=== PATIENT | female | born 1995 | race Caucasian/White ===

== ENCOUNTER → 2019-07-19 10:00 | Outpatient (BNVA) | payer OTHER, SELFPAY | PROVIDERS: Visit Provider Nurse Practitioner Women's Health | DX: Z01.89 Encounter for other specified special examinations (principal) | CPT/HCPCS: 88175 ==

== ENCOUNTER → 2020-05-21 10:50 | Outpatient (BNVA) | payer OTHER, SELFPAY | PROVIDERS: Visit Provider Registered Nurse | DX: R10.9 Unspecified abdominal pain (principal); M62.838 Other muscle spasm; B00.1 Herpesviral vesicular dermatitis; J30.89 Other allergic rhinitis | CPT/HCPCS: 81000 ==

== ENCOUNTER → 2020-06-11 09:35 | Outpatient (BNVA) | payer OTHER, SELFPAY | PROVIDERS: Visit Provider Registered Nurse | DX: Z20.828 Contact with and (suspected) exposure to other viral communicable diseases (principal); A08.4 Viral intestinal infection, unspecified | CPT/HCPCS: 87635 ==

== ENCOUNTER 2020-06-21 23:46 | Emergency (ER) | payer OTHER, SELFPAY ==
[2020-06-21 23:53] VITALS: BP 125/78; PULSE 100; RESP 18; TEMP 36.7; O2SAT 100; BMI 32.1
--- NOTE | 2020-06-22 00:29 | ED_ITS ---
HPI - General Adult General: Chief complaint: General Medical Stated complaint: rash Time Seen by Provider: 06/22/20 00:00 Source: patient Mode of arrival: ambulatory Limitations: no limitations History of Present Illness: HPI narrative: 25-year-old female patient presents to the emergency department with several week history of rash to the torso. She states recent visit to her primary care provider due to symptoms, was told it was a Covid rash, she tested negative for Covid. She went to the emergency department on Wednesday, prescribed prednisone, she reports prednisone did help but is not taking the medication daily. States Benadryl causes too much sedation to take. Has not attempted loratadine or Zyrtec. She reports rash is itchy, denies change of detergents lotions or powders. Onset (ago): week(s) (2-3) Location: chest, back and abdomen Associated symptoms: Reports nausea and rash; Deny chest pain, diaphoresis, dyspnea, headache(s) or palpitations Treatments prior to arrival: other (prednisone and Benadryl/hydroxyzine) Review of Systems General: Reports: 10 or more systems reviewed and unremarkable except in HPI and below Const: Denies: fever(s), chills or diaphoresis Eyes: Denies: blurry vision or eye redness ENMT: Denies: throat pain, dental pain or disequilibrium Card: Denies: chest pain, palpitations or irregular heart rhythm Resp: Denies: dyspnea, productive cough, non-productive cough or wheezing GI: Reports: nausea : Denies: difficulty voiding or dysuria Musc: Denies: back pain Skin/Breast: Reports: rash and erythema Neuro: Denies: headache(s), weakness in extremities or behavioral changes Psych: Denies: anxiety or depression Srini/Lymph: Denies: easy bruising PFSH ED PFSH: Medical History (Updated 06/22/20 @ 00:39 by ANNELIESE Mueller) No pertinent past medical history neg hx:htn,dm,thyroid,dvt/pe Surgical History H/O section 08/27/2010 for breech 09/03/2014 as repeat Family History Father Diabetes Hypertension Stroke Mother Family history of thyroid problem Denies family history of Hyperlipidemia Cancer Social History Smoking and tobacco status: current every day smoker cigarettes Alcohol intake: never Physical Exam Const: COMMON NORMALS: no acute distress, patient oriented x3, healthy appearing and alert GENERAL APPEARANCE: cooperative, comfortable and well hydrated HENMT: COMMON NORMALS: normocephalic, Normal external nose present and moist oral mucous membranes HEAD & SCALP: normocephalic NOSE: Normal external nose present Eye: COMMON NORMALS: Equal, round and reactive pupils present and EOMs intact bilaterally GENERAL EYE: appearance normal, both eyes and all related structures PUPIL: Yes Equal, round and reactive pupils present Neck/C-Spine: COMMON NORMALS: full ROM and no lymphadenopathy GENERAL: Yes normal visual inspection and Yes trachea midline CERVICAL SPINE: Yes cervical ROM normal Lymph: LYMPHATIC: no lymphadenopathy noted Chest: COMMONS NORMALS: normal inspection of the chest Resp: COMMON NORMALS: normal respiratory effort and clear to auscultation bilaterally AUSCULTATION: clear to auscultation bilaterally Cardio: COMMON NORMALS: regular rhythm, S1 normal heart sound present and S2 normal heart sound present RHYTHM: regular rhythm HEART SOUNDS: S1 normal heart sound present and S2 normal heart sound present GI: COMMON NORMALS: Soft to palpation and non-tender INSPECTION: Yes normal to inspection PALPATION: Yes Soft to palpation : COMMON NORMALS: Yes no CVA tenderness BLADDER/KIDNEY EXAM: Yes no CVA tenderness Back/Pelvis: COMMON NORMALS: no CVA tenderness and thoracic and lumbar spine normal to inspection Extremity: COMMON NORMALS: normal to inspection and capillary refill normal Neuro: COMMON NORMALS: patient oriented x3 and no focal motor deficits SENSORIUM/ORIENTATION: Yes alert Psych: COMMON NORMALS: mental status grossly normal, Normal thought process present and cooperative ACTIVITY/MOTOR BEHAVIOR: Yes appropriate eye contact THOUGHT PROCESS: Normal thought process present Skin: COMMON NORMALS: no wounds, turgor normal, no jaundice, no petechiae and no mottling GENERAL SKIN EXAM: turgor normal RASHES: rashes noted (scaling, small lesions, salmon-colored, slightly raised, ) and other (Ana tree pattern to the torso and back only, skin is extremely dry) Course Vital Signs: Vital signs: Vital Signs Temperature 98.1 F 06/21/20 23:53 Pulse Rate 78 06/22/20 01:11 Respiratory Rate 18 06/22/20 01:11 Blood Pressure 115/82 06/22/20 01:11 Pulse Oximetry 98 06/22/20 01:11 Discharge Plan Discharge Patient Disposition: Home Clinical Impression: Pityriasis rosea, Acute urticaria Condition: Stable Prescriptions: New prednisone 20 mg tablet 20 mg PO BID 10 Days Qty: 25 RF: 0 Pepcid 20 mg tablet 20 mg PO BID Qty: 20 RF: 0 loratadine 10 mg tablet 10 mg PO DAILY Qty: 10 RF: 0 No Action hydroxyzine HCl 25 mg tablet 25 mg PO TID PRN (Reason: itching) Qty: 15 RF: 0 Discharge Orders: Discharge ED (Routine); Ordered 06/22/20 Ordered By: Ashlee Adrian Referrals: Lissette Marques FNP [Primary Care Provider] - Discharge Diet: Usual diet Discharge Activity: Resume usual activity Patient Instructions: Urticaria (ED), Pityriasis rosea (ED) Activity Restrictions/Additional Instructions: Use hypoallergenic lotion such as Lubriderm or Aveeno, hydrating lotion to the back and abdomen Drink plenty of fluids to remain hydrated to help with skin hydration Take prednisone with food to avoid stomach upset, take medication as directed until all gone support services tech will be contacting you with an appointment with dermatology Return to the emergency department if you develop worsening symptoms such as difficulty breathing or worsening itching Utilize hypoallergenic, fragrance free detergents, double rinse clothing Coding Level of Care Code ED Supervisor [facility] for [facility] Exam Comprehensive
[2020-06-22] MEDS: famotidine 20 mg Tablet 40 MG PO (01:07)
[2020-06-22] MEDS: predniSONE 20 mg Tablet PO (01:07)
[2020-06-22] MEDS: loratadine 10 mg Tablet PO (01:08)
[2020-06-22 01:11] VITALS: BP 115/82; PULSE 78; RESP 18; O2SAT 98
--- NOTE | 2020-06-25 09:28 | DCPLANNER ---
poultry hatchery manager had message to schedule a follow up appointment for patient with dermatology. poultry hatchery manager called the clinic, spoke with Hinojosa, gave clinic patients information. A follow up appointment was scheduled for Wednesday, October 16, 2020 at 1:[address] Alexander. Clinic will call patient with appointment information.
--- NOTE | 2020-08-06 15:48 | DCPLANNER ---
Patient had a follow up appointment scheduled with dermatology Dr. Alexander - patient did attend appointment.
== END 2020-06-22 01:13 | disposition home or self-care (01) ==
PROVIDERS: Emergency Provider Nurse Practitioner Family; PCP Registered Nurse
DX: L42 Pityriasis rosea (principal); L50.9 Urticaria, unspecified; F17.210 Nicotine dependence, cigarettes, uncomplicated
CPT/HCPCS: 12345; 99281; 99283; J7512

== ENCOUNTER 2020-11-22 08:52 | Emergency (ER) | payer MEDICAID, SELFPAY ==
[2020-11-22 09:39] VITALS: BP 104/64; PULSE 77; RESP 16; TEMP 36.6; O2SAT 100; BMI 37.8
--- NOTE | 2020-11-22 10:17 | XR_ITS ---
WS: [id number] Portable AP upright chest, 11/22/2020 Clinical Data: cp, sob Comparison: None. Findings: No nodules, masses or effusions are seen. The heart is normal. The pulmonary vascularity is not increased. No pneumonia or pneumothorax is seen. XR/XR chest 1V portable [id number] Impression: Negative chest.
--- NOTE | 2020-11-22 10:19 | ECG_ITS ---
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 Measurements Intervals Wheeler Rate: 73 P: 64 OH: 155 QRS: 48 QRSD: 86 T: 37 QT: 366 QTc: 404 Interpretive Statements SINUS RHYTHM No previous ECG available for comparison Electronically Signed On 11-22-2020 14:13:36 CDT by Alem Akins M.D. [id number]
[2020-11-22 10:30] LABS: Basophils % 0.3 %; Eosinophils # 0.1 10^3/uL (0.0-0.8); Eosinophils % 0.8 %; Lymphocytes # 5.3 10^3/uL (0.8-4.8); Mean Corpuscular HGB Conc 31.1 g/dL (30.0-36.0); Mean Corpuscular Hemoglobin 27.8 pg (28.0-34.0); Mean Corpuscular Volume 89.3 fL (81-99); Mean Platelet Volume 11.3 fL (7.4-10.4); Monocytes % 6.5 %; Neutrophils # 8.24 10^3/uL (1.8-7.7); Neutrophils % 55.7 %; Nucleated Red Blood Cells % 0 %; Platelet Count 317 10^3/cmm (130-400); Red Blood Count 5.04 10^6/uL (4.1-5.3); Red Cell Distribution Width 13.5 % (12.1-15.1); White Blood Count 14.8 10^3/uL (4.0-10.0)
[2020-11-22 10:54] LABS: Troponin(5th) Baseline 6 ng/L (0-10)
[2020-11-22 10:59] LABS: Alanine Aminotransferase 22 U/L (0-33); Alkaline Phosphatase 70 IU/L (35-105); Blood Urea Nitrogen 11 mg/dL (6-20); Calcium 8.8 mg/dL (8.5-10.5); Carbon Dioxide 23 mmol/L (22-29); Chloride 104 mmol/L (98-107); Globulin 2.5 g/dL (1.3-4.6); Glomerular Filtration Rate 76.3 mL/min (90-130); Glucose 107 mg/dL (65-115); Lipase 43 U/L (13-60); Osmolality Calculated 288 mOsm/kg (285-295); Sodium 139 mmol/L (136-145); Total Bilirubin 0.2 mg/dL (0.15-1.2); Total Protein 6.5 g/dL (6.6-8.7)
[2020-11-22 11:00] LABS: Anion Gap 15.7 (5-19); Aspartate Amino Transferase 35 U/L (0-32); Potassium 3.7 mmol/L (3.5-5.1)
--- NOTE | 2020-11-22 11:00 | ED_ITS ---
HPI - Chest Pain General: Chief Complaint: Chest Pain Stated Complaint: CHEST PAIN AND BACK PAIN Time Seen by Provider: 11/22/20 10:16 History of Present Illness: HPI narrative: Patient is a 25-year-old female with no prior cardiac history who presents to the emergency department with chest pain that she noticed on waking up this morning around 7 AM. She started coughing last night and noticed chest pain this morning. No fever, she was diaphoretic and nauseous but no other symptoms. No dizziness or lightheadedness. She was brought into the emergency department to be evaluated. She was given ketorolac and ondansetron by the ambulance crew and her pain resolved completely. She is currently chest pain-free MD complaint: chest pain Onset (ago): hour(s) (4) Timing of current episode: constant Prior episodes: No Onset: during rest Pain location: substernal Pain radiation: back Severity: severe Relieving factors: other (ketorolac) Exacerbating factors: nothing Associated symptoms: Reports diaphoresis and nausea; Deny abdominal pain, dyspnea, fever(s), leg edema, palpitations, sense of impen ding doom, syncope or vomiting Treatment prior to arrival: other (ketorolac and zofran) Review of Systems General: Reports: 10 or more systems reviewed and unremarkable except in HPI and below Const: Reports: diaphoresis; Denies: fever(s) Card: Denies: palpitations or syncope Resp: Denies: dyspnea GI: Reports: nausea; Denies: abdominal pain or vomiting PFS ED PFSH: Medical History (Reviewed 11/22/20 @ 11:42 by Esthela Rogers MD, [facility] [place] No pertinent past medical history neg hx:htn,dm,thyroid,dvt/pe Surgical History (Reviewed 11/22/20 @ 11:42 by Esthela Rogers MD, [facility] [place]/O section 08/27/2010 for breech 09/03/2014 as repeat Family History (Reviewed 11/22/20 @ 11:42 by Esthela Rogers MD, [facility] [place] Father Diabetes Hypertension Stroke Mother Family history of thyroid problem Denies family history of Hyperlipidemia Cancer Social History (Reviewed 11/22/20 @ 11:42 by Esthela Rogers MD, [facility] [place] Smoking and tobacco status: current every day smoker cigarettes Alcohol intake: never Female Reproductive History: Date of last menstrual period: 11/02/20 Physical Exam Const: COMMON NORMALS: no acute distress, average body habitus, patient oriented x3, no limitations, healthy appearing, alert and well nourished HENMT: COMMON NORMALS: normocephalic, atraumatic and moist oral mucous membranes HEAD & SCALP: normocephalic and atraumatic Neck/C-Spine: COMMON NORMALS: no meningeal signs and no JVD Chest: COMMONS NORMALS: normal inspection of the chest and normal palpation of entire chest wall Resp: COMMON NORMALS: normal respiratory effort, No retractions, No use of accessory muscles, clear to auscultation bilaterally and percussion normal AUSCULTATION: clear to auscultation bilaterally PERCUSSION: percussion normal Cardio: COMMON NORMALS: no JVD, regular rate, regular rhythm, S1 normal heart sound present, S2 normal heart sound present, No gallops present (Cardio), No clicks present (Cardio), No murmurs present (Cardio), No rub (Cardio) and Peripheral pulses 2+ throughout RATE: regular rate RHYTHM: regular rhythm HEART SOUNDS: S1 normal heart sound present and S2 normal heart sound present PERIPHERAL PULSES: Peripheral pulses 2+ throughout GI: COMMON NORMALS: Normal to inspection, nondistended, normoactive bowel sounds present, Soft to palpation, non-tender, No hepatosplenomegaly present, no masses and no bruits PALPATION: Yes Soft to palpation and Yes No hepatosplenomegaly present Neuro: COMMON NORMALS: patient oriented x3 SENSORIUM/ORIENTATION: Yes alert MENINGEAL SIGNS: Yes no meningeal signs Course Reevaluation(s): Reevaluation #1: Discussed her lab and imaging findings with her. Negative for acute findings. We will discharge her home with no new orders. Chest pain likely secondary to musculoskeletal pain from coughing. She voiced understanding and is in agreement with the plan. She will be discharged home on conservative findings. Time: 11:33 Vital Signs: Vital signs: Vital Signs Temperature 97.9 F 11/22/20 09:39 Pulse Rate 79 11/22/20 11:14 Respiratory Rate 22 H 11/22/20 11:14 Blood Pressure 104/64 11/22/20 09:39 Pulse Oximetry 100 11/22/20 11:15 MDM - Chest Pain MDM Narrative: Medical decision making narrative: 25-year-old female patient with chest pain that is unlikely to be cardiac in nature. Heart score is 0 meaning she has a 1.7% risk of a major adverse cardiac event in the next 6 weeks. Chest pain likely related to musculoskeletal pain from coughing. We will discharge her home with no new orders. Medical Records: Attestation: I reviewed the patient's medical records. Lab Data: Attestation: I reviewed the patient's lab results. Labs: Lab Results 11/22/20 11/22/20 11/22/20 Range/Units 08:08 08:08 08:08 WBC 14.8 H (4.0-10.0) 10^3/ uL RBC 5.04 (4.1-5.3) 10^6/u L Hgb 14.0 (11.5-15.3) g/dL Hct 45.0 (37.0-47.0) % MCV 89.3 (81-99) fL MCH 27.8 L (28.0-34.0) pg MCHC 31.1 (30.0-36.0) g/dL RDW 13.5 (12.1-15.1) % Plt Count 317 (130-400) 10^3/c mm MPV 11.3 H (7.4-10.4) fL Neut % (Auto) 55.7 % Lymph % (Auto) 36.0 % Hamblen % (Auto) 6.5 % Eos % (Auto) 0.8 % Baso % (Auto) 0.3 % Neut # (Auto) 8.24 H (1.8-7.7) 10^3/u L Lymph # (Auto) 5.3 H (0.8-4.8) 10^3/u L Hamblen # (Auto) 1.0 H (0.2-0.9) 10^3/u L Eos # (Auto) 0.1 (0.0-0.8) 10^3/u L Baso # (Auto) 0.0 (0.0-0.1) 10^3/u L Nucleated RBC % (a uto) 0 % Nucleated RBCs # 0.0 /100WBC D-Dimer 0.38 (0-0.59) ug/mIFE U Sodium 139 (136-145) mmol/L Potassium 3.7 (3.5-5.1) mmol/L Chloride 104 (98-107) mmol/L Carbon Dioxide 23 (22-29) mmol/L Anion Gap 15.7 (5-19) BUN 11 (6-20) mg/dL Creatinine 0.9 (0.5-0.9) mg/dL GFR Calculation 76.3 L (90-130) mL/min Glucose 107 (65-115) mg/dL Calculated Osmolal ity 288 (285-295) mOsm/k g Calcium 8.8 (8.5-10.5) mg/dL Total Bilirubin 0.2 (0.15-1.2) mg/dL AST 35 H (0-32) U/L ALT 22 (0-33) U/L Alkaline Phosphata se 70 (35-105) IU/L Troponin T Baselin e (0-10) ng/L Total Protein 6.5 L (6.6-8.7) g/dL Albumin 4.0 (3.5-5.2) g/dL Globulin 2.5 (1.3-4.6) g/dL Lipase 43 (13-60) U/L 11/22/ Range/Units 08:08 WBC (4.0-10.0) 10^3/ uL RBC (4.1-5.3) 10^6/u L Hgb (11.5-15.3) g/dL Hct (37.0-47.0) % MCV (81-99) fL MCH (28.0-34.0) pg MCHC (30.0-36.0) g/dL RDW (12.1-15.1) % Plt Count (130-400) 10^3/c mm MPV (7.4-10.4) fL Neut % (Auto) % Lymph % (Auto) % Hamblen % (Auto) % Eos % (Auto) % Baso % (Auto) % Neut # (Auto) (1.8-7.7) 10^3/u L Lymph # (Auto) (0.8-4.8) 10^3/u L Hamblen # (Auto) (0.2-0.9) 10^3/u L Eos # (Auto) (0.0-0.8) 10^3/u L Baso # (Auto) (0.0-0.1) 10^3/u L Nucleated RBC % (a uto) % Nucleated RBCs # /100WBC D-Dimer (0-0.59) ug/mIFE U Sodium (136-145) mmol/L Potassium (3.5-5.1) mmol/L Chloride (98-107) mmol/L Carbon Dioxide (22-29) mmol/L Anion Gap (5-19) BUN (6-20) mg/dL Creatinine (0.5-0.9) mg/dL GFR Calculation (90-130) mL/min Glucose (65-115) mg/dL Calculated Osmolal ity (285-295) mOsm/k g Calcium (8.5-10.5) mg/dL Total Bilirubin (0.15-1.2) mg/dL AST (0-32) U/L ALT (0-33) U/L Alkaline Phosphata se (35-105) IU/L Troponin T Baselin e 6 (0-10) ng/L Total Protein (6.6-8.7) g/dL Albumin (3.5-5.2) g/dL Globulin (1.3-4.6) g/dL Lipase (13-60) U/L Imaging Data^: CXR: Attestation: I personally reviewed and interpreted this imaging study as follows: Radiologist's impression: [address] [id number] ReportSigned Patient: Quang Lamar LUnit #: [id number]: 1995Acct#:[id number]/Sex: / FADM Date: 11/22/20Loc: ERRoom/Bed:Attending Dr: Ordering Provider/Ordering MD: Esthela Rogers MD, [facility] [place] of Service: 11/22/20 Procedure(s): XR chest 1V portable [id number] Accession Number(s): [id number] Report Number: [id number] WS: [id number] Portable AP upright chest, 11/22/2020 Clinical Data: cp, sob Comparison: None. Findings: No nodules, masses or effusions are seen. The heart is normal. The pulmonary vascularity is not increased. No pneumonia or pneumothorax is seen. XR/XR chest 1V portable [id number] Impression: Negative chest. Dictated By:Pao Wilburn MDSigned By:Pao Wilburn MDSigned Date/Time:11/22/20 1037DD/ 1037 EKG Data^: EKG 1: Attestation: I personally reviewed and interpreted this EKG as follows: EKG interpretation date: 11/22/20 EKG interpretation time: 11:09 Prior EKG tracings: not available for review Interpretation: Sinus rhythm. Heart rate 73 bpm. Normal axis. No ST changes. Normal EKG. Discharge Plan Discharge Patient Disposition: Home Clinical Impression: Non-cardiac chest pain Condition: Stable Prescriptions: Continued hydroxyzine HCl 25 mg tablet 25 mg PO TID PRN (Reason: itching) Qty: 15 RF: 0 Pepcid 20 mg tablet 20 mg PO BID Qty: 20 RF: 0 loratadine 10 mg tablet 10 mg PO DAILY Qty: 10 RF: 0 Discharge Orders: Discharge ED (Routine); Ordered 11/22/20 Ordered By: sEthela Rogers Referrals: Pili Marques [Primary Care Provider] - 1-3 days Discharge Diet: Usual diet Discharge Activity: Increase activity as tolerated Patient Instructions: Noncardiac Chest Pain (ED) Activity Restrictions/Additional Instructions: Return for any new or worsening symptoms. Follow-up with your primary care provider within 3 days. Continue home medications. Chest pain most likely caused by the coughing leading to muscle or rib pain. Take Tylenol or ibuprofen as needed for pain. Coding Level of Care Code ED Director Of Retail Marketing for [facility] Alvarado
[2020-11-22 11:14] VITALS: PULSE 79; RESP 22; O2SAT 100
[2020-11-22 11:15] VITALS: O2SAT 100
[2020-11-22 11:25] LABS: D Dimer 0.38 ug/mIFEU (0-0.59)
[2020-11-22 11:51] VITALS: BP 103/56; PULSE 71; RESP 19; O2SAT 71
[2020-11-22 12:15] LABS: Troponin 5 2HR Delta 0 ABS# (0-10)
== END 2020-11-22 11:53 | disposition home or self-care (01) ==
PROVIDERS: Emergency Provider Family Medicine; PCP Registered Nurse
DX: R07.89 Other chest pain (principal); F17.210 Nicotine dependence, cigarettes, uncomplicated
CPT/HCPCS: 71045; 80053; 83690; 84484; 85025; 85378; 93005; 99283

== ENCOUNTER → 2020-12-10 14:55 | Outpatient (BNVA) | payer MEDICAID, SELFPAY | PROVIDERS: PCP Registered Nurse; Visit Provider Nurse Practitioner Women's Health | DX: N92.6 Irregular menstruation, unspecified (principal); L29.9 Pruritus, unspecified; M32.9 Systemic lupus erythematosus, unspecified | CPT/HCPCS: 81025 ==

== ENCOUNTER → 2020-12-13 10:55 | Outpatient (BNVA) | payer MEDICAID, SELFPAY | PROVIDERS: PCP Registered Nurse; Visit Provider Obstetrics & Gynecology | DX: O26.859 Spotting complicating pregnancy, unspecified trimester (principal); Z3A.00 Weeks of gestation of pregnancy not specified | CPT/HCPCS: 86850; 86900 ==

== ENCOUNTER → 2020-12-19 14:51 | Outpatient (BNVA) | payer MEDICAID, SELFPAY | PROVIDERS: PCP Registered Nurse; Visit Provider Obstetrics & Gynecology | DX: O02.1 Missed abortion (principal); O03.9 Complete or unspecified spontaneous abortion without complication; N91.2 Amenorrhea, unspecified | CPT/HCPCS: 84702 ==

== ENCOUNTER 2022-01-05 09:10 | Emergency (ER) | payer MEDICAID, SELFPAY ==
[2022-01-05 09:25] VITALS: BP 107/64; PULSE 83; RESP 14; TEMP 36.5; O2SAT 99; BMI 31.9
--- NOTE | 2022-01-05 10:25 | W.ED.NAVMDI ---
HPI - Nausea/Vomiting/Diarrhea General: Chief complaint: Nausea/Vomiting/Diarrhea Stated complaint: 5 weeks preg pain and spotting Time Seen by Provider: 01/05/22 09:23 Source: patient Mode of arrival: ambulatory History of Present Illness: 26-year-old female presents emergency room she is estimated to be 5 weeks by LMP. She seen Dr. Wilcox recently. For the last 5 days she has had persistent nausea vomiting unable to keep anything down. She has a history of lupus also some chronic back pain she stopped all her medications because of her including prednisone. Her back pain has been worsening her nausea vomiting is been persistent. Over the weekend in the last few days she had some light spotting that has resolved. She did not have any significant pelvic pain. No dysuria urgency or frequency. MD elicited complaint: nausea and vomiting Onset (ago): day(s) (5) Description of vomiting: watery Associated nausea: Yes Associated abdominal pain: No Location of pain: Other (Back exacerbation of her chronic) Pain consistency: constant Severity: moderate Exacerbating factors: none Relieving factors: none Associated symtoms: Reports anorexia and nausea; Denies altered mental status, anxiety, bloating, change in vision, chest pain, cough, diaphoresis, decreased urine output, dizziness, dysuria, epistaxis, fatigue, fecal incontinence, fevers/chills, headache(s), malaise, myalgias, numbness, palpitations, rash, short of breath, syncope, tenesmus, tinnitus or weakness Review of Systems Const: Reports: fever(s); Denies: chills, fatigue, malaise or diaphoresis Eyes: Denies: change in vision ENMT: Denies: tinnitus or epistaxis Card: Denies: chest pain, palpitations or syncope Resp: Denies: dyspnea, productive cough or non-productive cough GI: Reports: nausea and vomiting; Denies: abdominal pain, bloating or fecal incontinence : Denies: dysuria Musc: Reports: back pain Skin/Breast: Denies: rash or pruritus Neuro: Denies: headache(s) or dizziness Psych: Denies: anxiety PFSH ED PFSH: Medical History First trimester Lupus (systemic lupus erythematosus) No pertinent past medical history neg hx:htn,dm,thyroid,dvt/pe 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 Positive ENRIKE (antinuclear antibody) SS-A antibody positive Surgical History H/O section 08/27/2010--breech presentation 09/03/2014-- planned repeat Family History Father Diabetes Hypertension Stroke Mother Family history of thyroid problem Other CAD (coronary artery disease) Cancer Family history of premature coronary artery disease Hyperlipidemia Rheumatoid arthritis Denies family history of Colon cancer Ovarian cancer Lupus Heart disease Hypercholesteremia Chronic kidney disease (CKD) Breast cancer Lung disease Uterine cancer Social History Smoking and tobacco status: former smoker Alcohol intake: never History of recent travel: No Female Reproductive History: Date of last menstrual period: 11/02/20 Physical Exam Const: COMMON NORMALS: no acute distress EXAM LIMITATIONS: no altered mental status GENERAL APPEARANCE: cooperative and comfortable ORIENTATION/CONSCIOUSNESS: Yes awake, Yes oriented to person, Yes oriented to place and Yes oriented to time HENMT: COMMON NORMALS: normocephalic, atraumatic, hearing grossly normal bilaterally, external ears normal, EAC's normal, TM's normal bilaterally, Normal nasal mucous membranes and turbinates present, moist oral mucous membranes and oropharynx normal HEAD & SCALP: normocephalic and atraumatic NOSE: Normal nasal mucous membranes and turbinates present EXTERNAL EAR: Yes external ears normal EXTERNAL AUDITORY CANAL: EAC's normal TYMPANIC MEMBRANE: TM's normal bilaterally Eye: COMMON NORMALS: Equal, round and reactive pupils present, EOMs intact bilaterally, conjunctivae normal and no scleral icterus CONJUNCTIVA: Yes conjunctivae normal PUPIL: Yes Equal, round and reactive pupils present Neck/C-Spine: COMMON NORMALS: full ROM, no lymphadenopathy, supple and no JVD Lymph: LYMPHATIC: no lymphadenopathy noted and no lymphedema noted Resp: COMMON NORMALS: normal respiratory effort, No retractions, No use of accessory muscles and clear to auscultation bilaterally AUSCULTATION: clear to auscultation bilaterally Cardio: COMMON NORMALS: no JVD, regular rate, regular rhythm and No murmurs present (Cardio) RATE: regular rate RHYTHM: regular rhythm GI: COMMON NORMALS: Soft to palpation and No hepatosplenomegaly present AUSCULTATION: Yes normoactive bowel sounds PALPATION: Yes Soft to palpation, No Tenderness to palpation present (GI), No Guarding due to palpation present (GI) and Yes No hepatosplenomegaly present Extremity: COMMON NORMALS: normal to inspection, capillary refill normal, no clubbing, cyanosis or edema, no calf tenderness and no pedal edema Neuro: SENSORIUM/ORIENTATION: Yes oriented to person, Yes oriented to place and Yes oriented to time Skin: COMMON NORMALS: no rashes or lesions noted GENERAL SKIN EXAM: no rashes or lesions noted Course Vital Signs: Vital signs: Vital Signs Temperature 97.7 F 01/05/22 09:25 Pulse Rate 81 01/05/22 10:37 Respiratory Rate 14 01/05/22 11:14 Blood Pressure 126/60 01/05/22 10:37 Pulse Oximetry 99 01/05/22 11:14 Oxygen Delivery Me thod 01/05/22 10:37 MDM - Nausea/Vomiting/Diarrhea Medical Decision Making Hyperemesis gravidarum. Clinical diet 24 to 40 hours advance as tolerated use promethazine as needed follow-up with primary caregiver. Medical Records I reviewed the patient's medical records. Lab Data : 01/05/22 10:20 Radiology Impressions Transvaginal US 01/05/22 12:06 IMPRESSION: 1. Single intrauterine gestation of 6 weeks 6 days. 2. Normal cardiac activity. 3. Normal intrauterine gestation. Laboratory Results WBC 9.2 10^3/uL (4.0-10.0) 01/05/22 10:20 RBC 4.50 10^6/uL (4.1-5.3) 01/05/22 10:20 Hgb 13.3 g/dL (11.5-15.3) 01/05/22 10:20 Hct 42.3 % (37.0-47.0) 01/05/22 10:20 MCV 94.0 fl (81-99) 01/05/22 10:20 MCH 29.6 pg (28.0-34.0) 01/05/22 10:20 MCHC 31.4 g/dL (30.0-36.0) 01/05/22 10:20 RDW 13.3 % (12.1-15.1) 01/05/22 10:20 Plt Count 238 10^3/cmm (130-400) 01/05/22 10:20 MPV 11.4 fL (7.4-10.4) H 01/05/22 10:20 Neut % (Auto) 78.1 % 01/05/22 10:20 Lymph % (Auto) 13.1 % 01/05/22 10:20 [place] % (Auto) 6.4 % 01/05/22 10:20 Eos % (Auto) 1.3 % 01/05/22 10:20 Baso % (Auto) 0.7 % 01/05/22 10:20 Neut # (Auto) 7.21 10^3/uL (1.8-7.7) 01/05/22 10:20 Lymph # (Auto) 1.2 10^3/uL (0.8-4.8) 01/05/22 10:20 [place] # (Auto) 0.6 10^3/uL (0.2-0.9) 01/05/22 10:20 Eos # (Auto) 0.1 10^3/uL (0.0-0.8) 01/05/22 10:20 Baso # (Auto) 0.1 10^3/uL (0.0-0.1) 01/05/22 10:20 Nucleated RBC % (auto) 0 % 01/05/22 10:20 Nucleated RBCs # 0.0 /100WBC 01/05/22 10:20 Ser , Semi-Qnt 98251.00 mIU/mL 01/05/22 10:20 Discharge Plan Discharge Patient Disposition: Home Clinical Impression: Hyperemesis gravidarum, Lupus (systemic lupus erythematosus), First trimester Condition: Stable Prescriptions: No Action prenat.vits,suhas,vkr-pvyw-yfplt Tablet 1 tab PO QAM prednisone 10 mg tablet 10 mg PO DAILY PRN (Reason: for flares) Qty: 30 0RF Discharge Orders: Discharge ED (Routine); Ordered 01/05/22 Ordered By: Jose Rand Referrals: Pili Marques [Primary Care Provider] - Discharge Activity: Resume usual activity Patient Instructions: Opioid Safety Activity Restrictions/Additional Instructions: Follow-up with Dr. Wilcox in the next 2 weeks. You can use the promethazine half to a full tablet as needed for nausea vomitings start the Diclegis immediately and take as per prescription regularly. Coding Level of Care Code ED [facility] Director for [place] Fwd Exam Problem Focused
[2022-01-05] MEDS: promethazine 25 mg/mL SDV 1 mL IM (10:33)
[2022-01-05] MEDS: sodium chloride 0.9% 1,000 ML 999 ML IV ×2 (10:34→11:38)
[2022-01-05 10:37] VITALS: BP 126/60; PULSE 81; RESP 18; O2SAT 100
[2022-01-05 10:43] LABS: Basophils # 0.1 10^3/uL (0.0-0.1); Basophils % 0.7 %; Eosinophils # 0.1 10^3/uL (0.0-0.8); Eosinophils % 1.3 %; Hematocrit 42.3 % (37.0-47.0); Hemoglobin 13.3 g/dL (11.5-15.3); Lymphocytes # 1.2 10^3/uL (0.8-4.8); Lymphocytes % 13.1 %; Mean Corpuscular HGB Conc 31.4 g/dL (30.0-36.0); Mean Corpuscular Hemoglobin 29.6 pg (28.0-34.0); Mean Platelet Volume 11.4 fL (7.4-10.4); Monocytes # 0.6 10^3/uL (0.2-0.9); Monocytes % 6.4 %; Neutrophils # 7.21 10^3/uL (1.8-7.7); Neutrophils % 78.1 %; Nucleated Red Blood Cells % 0 %; Platelet Count 238 10^3/cmm (130-400); Red Cell Distribution Width 13.3 % (12.1-15.1); White Blood Count 9.2 10^3/uL (4.0-10.0)
[2022-01-05 11:14] VITALS: RESP 14; O2SAT 99
[2022-01-05] MEDS: morphine 4 mg/mL SDV 1 mL 2 MG IVP (11:14)
--- NOTE | 2022-01-05 12:06 | US_ITS ---
WS: [id number] EARLY OBSTETRICAL ULTRASOUND (<14 WEEKS). HISTORY: Confirm intrauterine gestation. COMPARISON: None available. Single intrauterine gestational sac is identified. Cardiac activity at 136 BPM. [place]-rump length mike sures 0.9 cm which corresponds to a gestation of 6w6d. Normal-appearing yolk sac and amnion demonstra hao. No subchorionic hemorrhage. No free fluid. Normal size ovaries. The RIGHT ovary contains a corpus luteum of measuring 2.1 x 2.0 x 2.3 cm. US/US OB transvaginal [id number] IMPRESSION: 1. Single intrauterine gestation of 6 weeks 6 days. 2. Normal cardiac activity. 3. Normal intrauterine gestation.
== END 2022-01-05 13:05 | disposition home or self-care (01) ==
PROVIDERS: Emergency Provider Family Medicine; PCP Registered Nurse
DX: O21.0 Mild hyperemesis gravidarum (principal); Z3A.01 Less than 8 weeks gestation of pregnancy; O99.111 Other diseases of the blood and blood-forming organs and certain disorders involving the immune mechanism complicating pregnancy, first trimester; M32.9 Systemic lupus erythematosus, unspecified; Z87.891 Personal history of nicotine dependence
CPT/HCPCS: 76817; 84702; 85025; 96361; 96372; 96374; 99285; J2270; J2550; J7030

== ENCOUNTER → 2022-01-13 11:03 | Outpatient (BNVA) | payer MEDICAID, SELFPAY | PROVIDERS: PCP Family Medicine; Visit Provider Internal Medicine Rheumatology | DX: R76.8 Other specified abnormal immunological findings in serum (principal); Z79.899 Other long term (current) drug therapy; Z33.1 Pregnant state, incidental | CPT/HCPCS: 99214 ==

== ENCOUNTER 2022-01-15 14:29 | Emergency (ER) | payer MEDICAID, SELFPAY ==
[2022-01-15 14:52] VITALS: BP 127/77; PULSE 93; RESP 18; TEMP 36.6; O2SAT 98; BMI 32.8
--- NOTE | 2022-01-15 15:24 | W.ED.BACK ---
HPI - Back Pain/Injury General: Chief Complaint: Back Pain/Injury Stated Complaint: SOB Time Seen by Provider: 01/15/22 15:08 History of Present Illness: Patient is a 26-year-old female that is currently 8 weeks and comes to the ED with back pain. Patient has lupus and has been having these flareups of back pain chronically. This back pain flareup started today is like her past back pain flareups due to lupus. She also endorsed having some nausea and vomiting at the time she was having acute pain earlier this morning. Back pain is on right side of mid back region. Denies any injury or trauma to cause acute pain. She just saw her vibration technician a couple days ago and they started her on a course of prednisone but she has not picked up prescription yet. She also has an outpatient ultrasound of her back ordered and is supposed to be getting it done with Guy Lucero within the next week. Doctors told her that her lupus will either flareup and get worse when she gets or will go in remission. Patient feels like her lupus symptoms are flaring up more now that she is . Denies any concerns for . Denies any vaginal bleeding, vaginal discharge, dysuria, hematuria, abdominal pain, diarrhea, fevers. Denies any current nausea or vomiting. Associated symptoms: Reports nausea and vomiting; Deny abdominal pain, chills, dysuria, fatigue, fever(s) or hematuria Review of Systems Const: Denies: fever(s), chills or fatigue Eyes: Denies: change in vision or eye discomfort ENMT: Denies: throat pain, odynophagia, nasal discharge or nasal congestion Card: Denies: chest pain, palpitations, edema, swelling of feet/ankles, dyspnea on exertion or orthopnea Resp: Denies: dyspnea, productive cough or non-productive cough GI: Reports: nausea and vomiting; Denies: abdominal pain, diarrhea, constipation or hematochezia : Denies: flank pain, dysuria, hematuria, vaginal bleeding or vaginal discharge Musc: Reports: back pain; Denies: neck pain or extremity swelling Skin/Breast: Denies: rash or new lesions Neuro: Denies: headache(s), numbness in extremities or weakness in extremities PFS ED PFSH: Medical History First trimester Lupus (systemic lupus erythematosus) No pertinent past medical history neg hx:htn,dm,thyroid,dvt/pe 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 Positive ENRIKE (antinuclear antibody) SS-A antibody positive Surgical History H/O section 08/27/2010--breech presentation 09/03/2014-- planned repeat Family History Father Diabetes Hypertension Stroke Mother Family history of thyroid problem Other CAD (coronary artery disease) Cancer Family history of premature coronary artery disease Hyperlipidemia Rheumatoid arthritis Denies family history of Colon cancer Ovarian cancer Lupus Heart disease Hypercholesteremia Chronic kidney disease (CKD) Breast cancer Lung disease Uterine cancer Social History Smoking and tobacco status: former smoker Alcohol intake: never History of recent travel: No Female Reproductive History: Date of last menstrual period: 11/28/21 Physical Exam Const: COMMON NORMALS: no acute distress, patient oriented x3, healthy appearing and alert GENERAL APPEARANCE: cooperative and comfortable HENMT: COMMON NORMALS: normocephalic HEAD & SCALP: normocephalic MOUTH: Normal oral and palatal mucosa present THROAT: posterior oropharynx normal and uvula midline Neck/C-Spine: COMMON NORMALS: supple GENERAL: Yes normal visual inspection Resp: COMMON NORMALS: normal respiratory effort, No retractions, No use of accessory muscles and clear to auscultation bilaterally AUSCULTATION: clear to auscultation bilaterally Cardio: COMMON NORMALS: regular rate, regular rhythm, S1 normal heart sound present, S2 normal heart sound present, No gallops present (Cardio), No clicks present (Cardio), No murmurs present (Cardio) and Peripheral pulses 2+ throughout RATE: regular rate RHYTHM: regular rhythm HEART SOUNDS: S1 normal heart sound present and S2 normal heart sound present PERIPHERAL PULSES: Peripheral pulses 2+ throughout GI: COMMON NORMALS: Normal to inspection, nondistended, normoactive bowel sounds present, Soft to palpation, non-tender and no masses PALPATION: Yes Soft to palpation : COMMON NORMALS: Yes no CVA tenderness BLADDER/KIDNEY EXAM: Yes no CVA tenderness Back/Pelvis: COMMON NORMALS: no CVA tenderness THORACIC SPINE/UPPER BACK: Yes paraspinal muscle tenderness Thoracic paraspinal muscle tenderness: right Right thoracic paraspinal muscle tenderness: T6, T7 and T8 Extremity: COMMON NORMALS: normal to inspection Neuro: COMMON NORMALS: patient oriented x3 SENSORIUM/ORIENTATION: Yes alert GAIT: Yes Normal gait present Skin: GENERAL SKIN EXAM: dry skin Course Vital Signs: Vital signs: Vital Signs Temperature 97.9 F 01/15/22 14:52 Pulse Rate 67 01/15/22 15:43 Respiratory Rate 18 01/15/22 15:43 Blood Pressure 126/65 01/15/22 15:43 Pulse Oximetry 100 01/15/22 15:43 Oxygen Delivery Me thod 01/15/22 15:43 MDM - Back Pain/Injury Medical Decision Making Patient is a 26-year-old female comes to the ED with back pain. Patient has history of lupus and has back pain flareups like this chronically. She says that this flareup of back pain is like her other flares in the past. She is currently 8 weeks and denies any complaints. Denies any fevers, dysuria, hematuria, vaginal discharge, vaginal bleeding, abdominal pain, current nausea or vomiting. Patient saw a vibration technician several days ago about the back pain and put her on prednisone and scheduled an ultrasound of her back in the next week. Vitals are stable. Patient appears nontoxic and in no acute distress or pain. She has some right paraspinal muscle tenderness of the thoracic spine. Rest of exam is benign. CBC, CMP and UA were all unremarkable and no signs of UTI. hCG 88,493 which is up from 57,730 back on January 05. Patient was stable for discharge home and diagnosed with back pain during and told to follow-up with her OB Dr. Wilcox in the next 24 to 48 hours for further evaluation. Strict return to ED precautions given. Patient understood agree with plan. Labs I reviewed the patient's lab results. : 01/15/22 15:34 01/15/22 15:34 Laboratory Results WBC 10.1 10^3/uL (4.0-10.0) H 01/15/22 15:34 RBC 4.45 10^6/uL (4.1-5.3) 01/15/22 15:34 Hgb 13.0 g/dL (11.5-15.3) 01/15/22 15:34 Hct 39.8 % (37.0-47.0) 01/15/22 15:34 MCV 89.4 fl (81-99) 01/15/22 15:34 MCH 29.2 pg (28.0-34.0) 01/15/22 15:34 MCHC 32.7 g/dL (30.0-36.0) 01/15/22 15:34 RDW 12.7 % (12.1-15.1) 01/15/22 15:34 Plt Count 264 10^3/cmm (130-400) 01/15/22 15:34 MPV 10.9 fL (7.4-10.4) H 01/15/22 15:34 Neut % (Auto) 79.4 % 01/15/22 15:34 Lymph % (Auto) 13.2 % 01/15/22 15:34 [place] % (Auto) 5.9 % 01/15/22 15:34 Eos % (Auto) 0.7 % 01/15/22 15:34 Baso % (Auto) 0.4 % 01/15/22 15:34 Neut # (Auto) 8.01 10^3/uL (1.8-7.7) H 01/15/22 15:34 Lymph # (Auto) 1.3 10^3/uL (0.8-4.8) 01/15/22 15:34 [place] # (Auto) 0.6 10^3/uL (0.2-0.9) 01/15/22 15:34 Eos # (Auto) 0.1 10^3/uL (0.0-0.8) 01/15/22 15:34 Baso # (Auto) 0.0 10^3/uL (0.0-0.1) 01/15/22 15:34 Nucleated RBC % (auto) 0 % 01/15/22 15:34 Nucleated RBCs # 0.0 /100WBC 01/15/22 15:34 Sodium 137 mmol/L (136-145) 01/15/22 15:34 Potassium 3.9 mmol/L (3.5-5.1) 01/15/22 15:34 Chloride 101 mmol/L (98-107) 01/15/22 15:34 Carbon Dioxide 24 mmol/L (22-29) 01/15/22 15:34 Anion Gap 15.9 (5-19) 01/15/22 15:34 BUN 9 mg/dL (6-20) 01/15/22 15:34 Creatinine 0.7 mg/dL (0.5-0.9) 01/15/22 15:34 GFR Calculation 101.1 mL/min (90-130) 01/15/22 15:34 Glucose 93 mg/dL (65-115) 01/15/22 15:34 Calculated Osmolality 282 mOsm/kg (285-295) L 01/15/22 15:34 Calcium 9.3 mg/dL (8.5-10.5) 01/15/22 15:34 Total Bilirubin 0.4 mg/dL (0.15-1.2) 01/15/22 15:34 AST 43 U/L (0-32) H 01/15/22 15:34 ALT 47 U/L (0-33) H 01/15/22 15:34 Alkaline Phosphatase 144 U/L (35-105) H 01/15/22 15:34 Total Protein 6.7 g/dL (6.6-8.7) 01/15/22 15:34 Albumin 3.8 g/dL (3.5-5.2) 01/15/22 15:34 Globulin 2.9 g/dL (1.3-4.6) 01/15/22 15:34 Ser , Semi-Qnt 79955.00 mIU/mL 01/15/22 15:34 Urine Color Yellow (Yellow) 01/15/22 15:19 Urine Appearance Hazy (CLEAR) A 01/15/22 15:19 Urine pH 7 (5-7) 01/15/22 15:19 Ur Specific [place] 1.015 (1.005-1.030) 01/15/22 15:19 Urine Protein Neg (Negative) 01/15/22 15:19 Urine Glucose (UA) Norm (Normal) 01/15/22 15:19 Urine Ketones Negative (Negative) 01/15/22 15:19 Urine Blood Neg (Negative) 01/15/22 15:19 Urine Nitrate Negative (Negative) 01/15/22 15:19 Urine Bilirubin Neg (Negative) 01/15/22 15:19 Urine Urobilinogen 1 mg/dL (Negative) H 01/15/22 15:19 Ur Leukocyte Esterase Negative (Negative) 01/15/22 15:19 Discharge Plan Discharge Patient Disposition: Home Clinical Impression: Back pain during Condition: Stable Prescriptions: No Action prenat.vits,suhas,gxu-ofgo-hmuca Tablet 1 tab PO QAM prednisone 10 mg tablet 10 mg PO DAILY PRN (Reason: for flares) Qty: 30 0RF Discharge Orders: Discharge ED (Routine); Ordered 01/15/22 Ordered By: Colt Levy Referrals: Jeff Wilcox MD [Primary Care Provider] - Discharge Diet: Regular Discharge Activity: Increase activity as tolerated Activity Restrictions/Additional Instructions: Follow-up with Dr. Wilcox within the next 24 to 48 hours for further evaluation of back pain. Take [id number] Tylenol to help with pain. Return to the ER or your medical provider if condition worsens. Please read and understand discharge instructions. Thank you for choosing [facility] for your healthcare needs today. Please realize this is an emergency room and that we are providing you with a medical screening exam and this may not be complete and all inclusive of all the testing and or work up that you may need to determine your ailment or severity of your illness. It is very important that you follow up as instructed or that you return to the Emergency Department should you have concerns or if your condition changes or worsens in any way. Coding Level of Care Code ED Printing Sales Representative for Michael Alvarado Exam Comprehensive
[2022-01-15 15:26] LABS: Add Urine Microscopic? NO; Charge for UA Resulting for Rev
[2022-01-15 15:30] LABS: Bilirubin Urine Neg (Negative); Blood Urine Neg (Negative); Glucose Urine UA Norm (Normal); Ketones Urine Negative (Negative); Leukocyte Esterase Urine Negative (Negative); Nitrate Urine Negative (Negative); Protein Urine Neg (Negative); Specific Gravity, Urine 1.015 (1.005-1.030); Urine Appearance Hazy (CLEAR); Urine Color Yellow (Yellow); Urobilinogen Urine 1 mg/dL (Negative); pH Urine 7 (5-7)
--- NOTE | 2022-01-15 15:31 | PC.PHAR ---
pt states she hasnt taken zofran (filled 01/02/22),zyrtec 10mg qd prn (filled 12/19/21),hydroxyzine pamoate 50mg tid prn (filled 12/19/21),pepcid 20mg qd prn (filled 12/19/21) hydroxycloroquine 200mg bid prn (filled 12/19/21 10d/s) since feb when she found out she was -pt states only taking a vitamin-notes are made in the pharmacy comments
[2022-01-15 15:43] VITALS: BP 126/65; PULSE 67; RESP 18; O2SAT 100
[2022-01-15] MEDS: HYDROcodone-acetaminophen 5-325 mg Tablet 1 TAB PO (15:45)
[2022-01-15 15:49] LABS: Basophils % 0.4 %; Eosinophils # 0.1 10^3/uL (0.0-0.8); Eosinophils % 0.7 %; Hematocrit 39.8 % (37.0-47.0); Lymphocytes # 1.3 10^3/uL (0.8-4.8); Lymphocytes % 13.2 %; Mean Corpuscular HGB Conc 32.7 g/dL (30.0-36.0); Mean Corpuscular Hemoglobin 29.2 pg (28.0-34.0); Mean Corpuscular Volume 89.4 fl (81-99); Mean Platelet Volume 10.9 fL (7.4-10.4); Monocytes # 0.6 10^3/uL (0.2-0.9); Monocytes % 5.9 %; Neutrophils # 8.01 10^3/uL (1.8-7.7); Neutrophils % 79.4 %; Nucleated Red Blood Cells % 0 %; Platelet Count 264 10^3/cmm (130-400); Red Blood Count 4.45 10^6/uL (4.1-5.3); Red Cell Distribution Width 12.7 % (12.1-15.1); White Blood Count 10.1 10^3/uL (4.0-10.0)
[2022-01-15 16:31] LABS: Alanine Aminotransferase 47 U/L (0-33); Albumin Level 3.8 g/dL (3.5-5.2); Alkaline Phosphatase 144 U/L (35-105); Anion Gap 15.9 (5-19); Aspartate Amino Transferase 43 U/L (0-32); Blood Urea Nitrogen 9 mg/dL (6-20); Calcium 9.3 mg/dL (8.5-10.5); Carbon Dioxide 24 mmol/L (22-29); Chloride 101 mmol/L (98-107); Globulin 2.9 g/dL (1.3-4.6); Glomerular Filtration Rate 101.1 mL/min (90-130); Glucose 93 mg/dL (65-115); Osmolality Calculated 282 mOsm/kg (285-295); Potassium 3.9 mmol/L (3.5-5.1); Sodium 137 mmol/L (136-145); Total Bilirubin 0.4 mg/dL (0.15-1.2); Total Protein 6.7 g/dL (6.6-8.7)
[2022-01-15 17:22] VITALS: BP 96/58; PULSE 75; RESP 18; O2SAT 97
== END 2022-01-15 17:25 | disposition home or self-care (01) ==
PROVIDERS: Emergency Provider Physician Assistant; PCP Family Medicine
DX: O26.891 Other specified pregnancy related conditions, first trimester (principal); M54.9 Dorsalgia, unspecified; Z3A.08 8 weeks gestation of pregnancy; Z87.891 Personal history of nicotine dependence; M32.9 Systemic lupus erythematosus, unspecified
CPT/HCPCS: 36415; 80053; 81003; 84702; 85025; 99283

== ENCOUNTER 2022-05-03 22:31 | Outpatient (CLI) | payer MEDICAID, SELFPAY ==
[2022-05-03 22:30] VITALS: BMI 33.2
[2022-05-03 22:39] VITALS: BP 111/57; PULSE 92; TEMP 35.7
[2022-05-03 23:05] VITALS: BP 105/56; PULSE 82
[2022-05-03 23:07] VITALS: BP 105/56; PULSE 82
[2022-05-03] MEDS: ondansetron 4 MG Tablet PO (23:21)
== END 2022-05-03 23:22 | disposition home or self-care (01) ==
LOC: OPOB 22:32 → OBGYN 22:32
PROVIDERS: PCP Family Medicine; Visit Provider Family Medicine
DX: O26.899 Other specified pregnancy related conditions, unspecified trimester (principal); Z3A.00 Weeks of gestation of pregnancy not specified; R10.9 Unspecified abdominal pain
CPT/HCPCS: 59025; 99211; Q0162

== ENCOUNTER 2022-07-03 10:38 | Outpatient (CLI) | payer MEDICAID, SELFPAY ==
--- NOTE | 2022-07-03 10:48 | US_ITS ---
WS: [id number] ULTRASOUND OB FOCUSED HISTORY: LOW LYING PLACENTA COMPARISON: 04/08/2022 Fetus in vertex position. Cervix is closed at 4.4 cm. heart rate at 138 BPM. Placenta is posterior and ends 7.7 cm above the cervical os. Placenta grade 1. Amniotic fluid index: 19.1 cm. US/[place] [id number] IMPRESSION: 1. Posterior placenta is no longer low lying. Placenta ends 7.7 cm above the c ervical os. 2. Normal cardiac activity.
== END 2022-07-03 10:39 | disposition home or self-care (01) ==
LOC: RAD 10:43
PROVIDERS: PCP Family Medicine; Visit Provider Family Medicine
DX: O44.40 Low lying placenta NOS or without hemorrhage, unspecified trimester (principal)
CPT/HCPCS: 76816

== ENCOUNTER 2022-08-19 04:55 | Inpatient (IN) | payer MEDICAID, SELFPAY ==
--- NOTE | 2022-07-30 15:14 | P.ANESASSM_ITS ---
Pre-Anesthetic Assessment Height/Weight: Height 1.55 m Operation Date: 08/19/22 07:00 Proposed Procedures p Section Repeat With BTL(Bilateral) - Jeff Wilcox MD Familial anesthetic complications: none Was Beta Maureen taken within 24 hours: N/A Was Clonidine taken within 24 hours: N/A Social No alcohol and No tobacco Exam alert, oriented x 3, clear to auscultation bilaterally and regular rate & rhythm Airway Submandibular: within normal limits Cervical ROM: within normal limits Mallampati: Class II Dentition: chipped Metabolic SLE Anesthetic Plan ASA status: 2 Anesthesia: Regional (specify below) (SAB) Medications/Allergies Allergies Allergy/AdvReac Type Severity Reaction Status Date / Time No Known Allergies Allergy Verified 01/15/22 15:30 [facility] Anesthesia Medical History First trimester Lupus (systemic lupus erythematosus) No pertinent past medical history neg hx:htn,dm,thyroid,dvt/pe 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 ENRIKE (antinuclear antibody) SS-A antibody positive Surgical History H/O section 08/27/2010--breech presentation 09/03/2014-- planned repeat Family History Father Diabetes Hypertension Stroke Mother Family history of thyroid problem Other CAD (coronary artery disease) Cancer Family history of premature coronary artery disease Hyperlipidemia Rheumatoid arthritis Denies family history of Colon cancer Ovarian cancer Lupus Heart disease Hypercholesteremia Chronic kidney disease (CKD) Breast cancer Lung disease Uterine cancer Social History Smoking and tobacco status: former smoker Alcohol intake: never History of recent travel: No Female Reproductive History Date of last menstrual period: 11/28/21 Data Anesthesia Cardiac Studies: No Data to Display
[2022-08-19] VITALS (28 sets, daily range): BP systolic 82–109; BP diastolic 40–62; PULSE 51–96; RESP 16–18; TEMP 35.4–36.7; O2SAT 98–99; BMI 35.1
[2022-08-19 05:28] LABS: Basophils % 0.3 %; Eosinophils # 0.1 10^3/uL (0.0-0.8); Eosinophils % 0.7 %; Hematocrit 34.5 % (37.0-47.0); Hemoglobin 11.1 g/dL (11.5-15.3); Lymphocytes # 3.2 10^3/uL (0.8-4.8); Lymphocytes % 23.5 %; Mean Corpuscular HGB Conc 32.2 g/dL (30.0-36.0); Mean Corpuscular Hemoglobin 28.4 pg (28.0-34.0); Mean Corpuscular Volume 88.2 fl (81-99); Mean Platelet Volume 10.6 fL (7.4-10.4); Monocytes % 7.2 %; Neutrophils # 9.12 10^3/uL (1.8-7.7); Neutrophils % 67.1 %; Nucleated Red Blood Cells % 0 %; Platelet Count 356 10^3/cmm (130-400); Red Blood Count 3.91 10^6/uL (4.1-5.3); Red Cell Distribution Width 12.7 % (12.1-15.1); White Blood Count 13.6 10^3/uL (4.0-10.0)
[2022-08-19] MEDS: ceFAZolin 2,000 MG in sodium chloride 0.9% (plus) 50 ML 100 MG IV (05:30)
[2022-08-19] MEDS: lactated ringers 1,000 ML 999 ML IV ×2 (05:30→06:34)
--- NOTE | 2022-08-19 06:12 | ANES.PREANE2 ---
Pre-Anesthetic Assessment Height/Weight: Height 1.55 m Weight 84.368 kg Temp Pulse Resp BP O2 Del Method 97.5 F L 85 16 104/49 08/19/22 05:18 08/19/22 05:19 08/19/22 05:02 08/19/22 05:19 08/19/22 05:23 Operation Date: 08/19/22 07:00 Proposed Procedures p Section Repeat With BTL(Bilateral) - Jeff Wilcox MD Familial anesthetic complications: None Was Beta Maureen taken within 24 hours: N/A Was Clonidine taken within 24 hours: N/A Last intake: Intake Last Liquid Date 08/18/22 Last Liquid Time 23:00 Last Solid Date 08/18/22 Last Solid Time 21:30 Social Tobacco and No tobacco 1/2 pack cigarretes and vape pack(s) per day Exam alert, oriented x 3, clear to auscultation bilaterally and regular rate & rhythm Airway Submandibular: within normal limits Cervical ROM: within normal limits Mallampati: Class II Dentition: full History/ROS No significant history except as noted and No significant complaints Pulmonary None reported CV/HEM None reported None reported Hepatic None reported GI Gastroesophageal Reflux Disease Metabolic None reported Musc/skel None reported Neuropsych None reported Anesthetic Plan ASA status: 2 Anesthesia: Regional (specify below) Other: spinal Risk of > 500 ml blood loss (7ml/kg in children): Yes, adequate IV access and fluids planned Medications/Allergies Home Medications Medication Instructions Recorded Confirmed Last Taken Type famotidine 20 mg tablet 20 mg PO DAILY PRN Heartburn 08/19/22 08/19/22 08/17/22 History Allergies Allergy/AdvReac Type Severity Reaction Status Date / Time No Known Allergies Allergy Verified 08/19/22 05:18 [facility] Anesthesia Medical History First trimester Lupus (systemic lupus erythematosus) No pertinent past medical history neg hx:htn,dm,thyroid,dvt/pe 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 Positive ENRIKE (antinuclear antibody) SS-A antibody positive Surgical History H/O section 08/27/2010--breech presentation 09/03/2014-- planned repeat Family History Father Diabetes Hypertension Stroke Mother Family history of thyroid problem Other CAD (coronary artery disease) Cancer Family history of premature coronary artery disease Hyperlipidemia Rheumatoid arthritis Denies family history of Colon cancer Ovarian cancer Lupus Heart disease Hypercholesteremia Chronic kidney disease (CKD) Breast cancer Lung disease Uterine cancer Social History Smoking and tobacco status: former smoker Alcohol intake: never History of recent travel: No Female Reproductive History Date of last menstrual period: 11/28/21 : 4 Data Anesthesia 08/19/22 05:14 Short CBC 08/19/22 Range/Units 05:14 WBC 13.6 H (4.0-10.0) 10^3/uL Hgb 11.1 L (11.5-15.3) g/dL Hct 34.5 L (37.0-47.0) % MCV 88.2 (81-99) fl Plt Count 356 (130-400) 10^3/cmm Neut % (Auto) 67.1 % Neut # (Auto) 9.12 H (1.8-7.7) 10^3/uL Cardiac Studies: No Data to Display
[2022-08-19] MEDS: metoclopramide 5 mg/mL SDV 2 mL 10 MG IVP (06:34)
[2022-08-19] MEDS: citric acid-sodium citrate 30 mL UDC PO (06:34)
[2022-08-19] MEDS: famotidine 20 mg/2 mL INJ IVP (06:34)
--- NOTE | 2022-08-19 06:55 | P.HP_ITS ---
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 The patient has had a relatively unremarkable . There have been no complications. She does have a past history of a diagnosis of lupus, but has had significant symptoms during her consistent with lupus. Her labs are as follows. Her blood type is AB+. Her antibody screen is negative she was GBS positive. Rubella immune. The remainder of her infectious disease profile was within normal limits. The patient also would like to have a tubal ligation performed. We discussed the risks, benefits, and alternatives of a tubal ligation multiple times during her . With regards to the tubal ligation and , we discussed the risks of bleeding, infection, and damage to intra-abdominal organs. With regards to the tubal ligation we discussed the increased risk for an ectopic . We discussed the 1 and 200 chance of becoming again despite a successful tubal ligation. She had no further questions about these issues and wishes to proceed. Present Details : 4 Para: 2 Date of Last Menstrual Period: 11/28/21 Calculated Date of Delivery: 09/04/22 Gestational Age Based on Last Menstrual Period: 37 Labs Rubella: Immune RPR: Negative GBS: Positive Review of Systems General: Reports: 10 or more systems reviewed and unremarkable except in HPI and below Const: Reports: fatigue; Denies: fever(s) Eyes: Denies: change in vision Card: Denies: chest pain Musc: Reports: back pain Srini/Lymph: Denies: easy bruising Medications/Allergies Home Medications Medication Instructions Recorded Confirmed Last Taken Type famotidine 20 mg tablet 20 mg PO DAILY PRN Heartburn 08/19/22 08/19/22 08/17/22 History Allergies Allergy/AdvReac Type Severity Reaction Status Date / Time No Known Allergies Allergy Verified 08/19/22 05:18 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: Medical History First trimester Lupus (systemic lupus erythematosus) No pertinent past medical history neg hx:htn,dm,thyroid,dvt/pe 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: 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 Positive ENRIKE (antinuclear antibody) SS-A antibody positive Surgical History H/O section 08/27/2010--breech presentation 09/03/2014-- planned repeat Family History Father Diabetes Hypertension Stroke Mother Family history of thyroid problem Other CAD (coronary artery disease) Cancer Family history of premature coronary artery disease Hyperlipidemia Rheumatoid arthritis Denies family history of Colon cancer Ovarian cancer Lupus Heart disease Hypercholesteremia Chronic kidney disease (CKD) Breast cancer Lung disease Uterine cancer Social History Smoking and tobacco status: former smoker Alcohol intake: never History of recent travel: No Other Female Reproductive History: Hx Age of Menarche: 10 Date of Last Menstrual Period: 10/29/20 History History History 2 Term 2 0 Miscarriages/Ectopic 0 Living Children 2 Vitals/I&O/Wt Last Vital Signs Temp 97.5 F L 08/19/22 05:18 Pulse 85 08/19/22 05:19 Resp 16 08/19/22 05:02 BP 104/49 08/19/22 05:19 O2 Del Method 08/19/22 05:23 08/18/22 08/18/22 08/19/22 14:59 22:59 06:59 Intake Total 1050 / 1050 Balance 1050 / 1050 Weight last 48 hrs Weight 186 lb Physical Exam Const: COMMON NORMALS: patient oriented x3 and alert HENMT: COMMON NORMALS: moist oral mucous membranes HEAD & SCALP: normal to inspection Chest: COMMONS NORMALS: normal inspection of the chest Resp: COMMON NORMALS: clear to auscultation bilaterally AUSCULTATION: clear to auscultation bilaterally Cardio: COMMON NORMALS: regular rate and regular rhythm RATE: regular rate RHYTHM: regular rhythm GI: INSPECTION: Yes normal to inspection and Yes other (Gravid) Extremity: COMMON NORMALS: normal to inspection GENERAL: Yes edema (Trace) Neuro: COMMON NORMALS: patient oriented x3, moves all extremities and no sensory deficits noted SENSORIUM/ORIENTATION: Yes alert Psych: COMMON NORMALS: mental status grossly normal Skin: COMMON NORMALS: no rashes or lesions noted GENERAL SKIN EXAM: no rashes or lesions noted Data 08/19/22 05:14 A&P Assessment and plan (1) 39 weeks gestation of : (2) History of : We will proceed with a repeat section and tubal ligation. (3) Sterilization consult: Attestations Medical Necessity Statement*: I anticipate routine and post C- section care. Coding Level of Care Code Acute Code for Chg Fwd Diagnoses 39 weeks gestation of Z3A.39 History of Z98.891 Sterilization consult Z30.09
--- NOTE | 2022-08-19 08:15 | PC.NURSE ---
IN OR PACU
--- NOTE | 2022-08-19 08:20 | P.OP_ITS ---
Operative Report Date of procedure: August 19, 2022 Pre-op diagnosis: 1. 27-year-old 3 para 2-0-1-2 at 39 weeks estimated gestational age presenting for a repeat section 2. Desires sterilization Post-op diagnosis: Same Procedure done: 1. Lower transverse section 2. Intraoperative bilateral tubal ligation using a modified [place] technique Specimens removed/disposition: 1. Female with a weight of 5 pounds 12 ounces and Apgars of 9 and 9 2. Placenta with a three-vessel cord delivered intact 3. Bilateral fallopian tube segments with the right segment being tagged Pathology: Bilateral fallopian tube segments with the right segment being tagged Surgeon: Jeff Wilcox Estimated blood loss (mL): 400 Procedure: The patient was brought back to the operating room where she was prepped and draped in usual sterile fashion. Anesthesia was found to be adequate. A lower transverse skin incision was then made with a #10 blade. I then dissected down to the underlying subcutaneous tissue until arriving at the prerectal fascia. The fascia was then nicked with the scalpel bilaterally. The fascial incisions were then carried laterally with Muñoz scissors. Attention was then turned to the superior aspect of the incision which was grasped with kochers and tented up away from the underlying rectus abdominis muscles. The muscles were then dissected away from the fascia manually, and later with Muñoz scissors. Attention was then turned to the inferior aspect of the incision, and the fascia was dissected away from the underlying muscle in similar fashion. The rectus abdominis muscles were then spread manually. The peritoneum was entered manually. Excellent visualization of the uterus was noted. The lower trans verse wall of the uterus was noted to be very thin, and the baby was visualized without cutting the uterus. I carefully nicked the membrane with a #10 blade, and clear amniotic fluid was noted. I then extended the uterine incision manually. The infant was noted to be in vertex position. The baby was delivered without difficulty. After delivery of the head, the mouth and nose were suctioned at the site of the incision. There was no meconium. There was a body cord x1. The baby was then completely delivered and placed on the abdomen. The cord was cut and clamped. The baby was then handed to the waiting nurse. The placenta was removed intact. The uterus was externalized. The intrauterine cavity was cleansed of any remaining debris. The uterine incision was reapproximated with only 1 layer due to how thinness of the uterine wall. Attention was then turned to the left fallopian tube which was ligated cut and cauterized in a modified [place] fashion with 0 chromic. Attention was then turned to the right fallopian tube which was also ligated cut and cauterized in similar fashion. The uterine incision was reexamined, and bleeding was noted on the left lateral portion of the incision. After placing 2 [id number] stitches, hemostasis was noted. The uterus was replaced into the abdomen. The peritoneum was then irrigated with warm saline. I reexamined the uterine inc ision and found it to be hemostatic. The rectus abdominis muscles were then reapproximated using 0 Vicryl in a running stitch. The fascia was then reapproximated using 0 Vicryl in running stitch. The skin was reapproximated using tulio. A sterile dressing was placed. All counts were correct x2. Both the mother and baby were in stable condition.
[2022-08-19] MEDS: HYDROcodone-acetaminophen 5-325 mg Tablet PO (11:38)
[2022-08-19] MEDS: ketorolac 30 mg/mL INJ IVP ×2 (13:39→20:31)
--- NOTE | 2022-08-19 14:07 | PC.NURSE ---
1345 PT UP TO CHAIR, DID VERY WELL, LINEN CHANGE DONE WELL.
--- NOTE | 2022-08-19 15:00 | ANE.PACU2 ---
Inpatient post-anesthesia follow up: Airway intact: Yes Vital signs: Temperature 98.0 F Pulse Rate 56 Respiratory Rate 17 Blood Pressure 82/44 Pulse Oximetry 99 Oxygen Delivery Me thod Room Air Oxygen Flow Rate Fraction of Inspir ed Oxygen Hydration adequate: Yes Nausea and vomiting: No Pain level: 1 Mental status: Baseline
[2022-08-19] MEDS: ferrous sulfate EC 325 mg Tablet PO (20:31)
[2022-08-19] MEDS: docusate sodium 100 mg Capsule PO (20:31)
[2022-08-19] MEDS: alum-mag-hydroxide-sime 30 mL UDC PO (20:33)
[2022-08-19 22:05] LABS: Hematocrit 31.5 % (37.0-47.0); Hemoglobin 10.1 g/dL (11.5-15.3); Mean Corpuscular HGB Conc 32.1 g/dL (30.0-36.0); Mean Corpuscular Hemoglobin 28.9 pg (28.0-34.0); Platelet Count 320 10^3/cmm (130-400); Red Cell Distribution Width 12.8 % (12.1-15.1); White Blood Count 16.3 10^3/uL (4.0-10.0)
[2022-08-20] VITALS (8 sets, daily range): BP systolic 78–118; BP diastolic 45–57; PULSE 63–81; RESP 17; TEMP 35.3–35.7
[2022-08-20] MEDS: HYDROcodone-acetaminophen 5-325 mg Tablet PO ×4 (06:34→19:33)
--- NOTE | 2022-08-20 06:39 | PM.OBGYDC ---
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 Date of Admission: 08/19/22 04:55 Date of Discharge: 08/21/22 Attending Provider at Admission: Jeff Wilcox MD Attending Provider at Discharge: Jeff Wilcox MD Primary Care Provider: Jeff Wilcox MD Diagnoses at Discharge Discharge Diagnosis (1) 39 weeks gestation of : Status: Acute (2) History of : Status: Acute (3) Sterilization consult: Status: Acute Reason for Visit Reason for Visit: SCHEDULED C/SECTION WITH TUBAL Hospital Course Hospital Course The patient presented to the hospital for a repeat section and tubal ligation Physical Exam Narrative: She is in no acute distress Lungs are clear auscultation bilaterally Her heart has a regular rate and rhythm Her fundus is below the umbilicus and firm Her dressing is clean, dry and intact Her extremities have trace edema Urinary Catheter Management: Sharma: Cath Placed During This Visit: yes, but has since been removed by the nurse Reason for Continuing Indwelling Catheter: Perioperative Use in Selected Surgeries Urinary Catheter Date of Insertion: 08/19/22 Urinary Catheter Time of Insertion: 07:16 Date Urinary Catheter Removed: 08/19/22 Time Urinary Catheter Discontinued: 17:51 History History History 2 Term 2 0 Miscarriages/Ectopic 0 Living Children 2 Discharge Data Studies Completed and Pending Pending at discharge Category Date Time Status Pathology: Surgical [PTH] Routine Pth 08/19/22 13:49 Received Laboratory Results WBC 16.3 10^3/uL (4.0-10.0) H 08/19/22 21:45 RBC 3.50 10^6/uL (4.1-5.3) L 08/19/22 21:45 Hgb 10.1 g/dL (11.5-15.3) L 08/19/22 21:45 Hct 31.5 % (37.0-47.0) L 08/19/22 21:45 MCV 90.0 fl (81-99) 08/19/22 21:45 MCH 28.9 pg (28.0-34.0) 08/19/22 21:45 MCHC 32.1 g/dL (30.0-36.0) 08/19/22 21:45 RDW 12.8 % (12.1-15.1) 08/19/22 21:45 Plt Count 320 10^3/cmm (130-400) 08/19/22 21:45 MPV 11.0 fL (7.4-10.4) H 08/19/22 21:45 Neut % (Auto) 67.1 % 08/19/22 05:14 Lymph % (Auto) 23.5 % 08/19/22 05:14 [place] % (Auto) 7.2 % 08/19/22 05:14 Eos % (Auto) 0.7 % 08/19/22 05:14 Baso % (Auto) 0.3 % 08/19/22 05:14 Neut # (Auto) 9.12 10^3/uL (1.8-7.7) H 08/19/22 05:14 Lymph # (Auto) 3.2 10^3/uL (0.8-4.8) 08/19/22 05:14 [place] # (Auto) 1.0 10^3/uL (0.2-0.9) H 08/19/22 05:14 Eos # (Auto) 0.1 10^3/uL (0.0-0.8) 08/19/22 05:14 Baso # (Auto) 0.0 10^3/uL (0.0-0.1) 08/19/22 05:14 Nucleated RBC % (auto) 0 % 08/19/22 05:14 Nucleated RBCs # 0.0 /100WBC 08/19/22 05:14 Vitals Last Vital Signs Temp 95.5 F L 08/20/22 04:14 Pulse 75 08/20/22 04:15 Resp 18 08/19/22 13:30 BP 78/45 08/20/22 04:15 Pulse Ox 99 08/19/22 08:40 O2 Del Method 08/19/22 08:58 Discharge Plan Discharge Patient Disposition: Home Condition: Stable Prescriptions: New ibuprofen 800 mg Tablet 800 mg PO TID Qty: 45 0RF hydrocodone-acetaminophen 5-325 mg Tablet 1 tab PO Q6H PRN (Reason: Moderate To Severe Pain) Qty: 28 0RF docusate sodium 100 mg Capsule 100 mg PO BID Qty: 20 0RF -U 106.5-1 mg Capsule 1 cap PO BREAKFAST Qty: 100 2RF Rx Instructions: Take as long as you are Discontinued famotidine 20 mg tablet 20 mg PO DAILY PRN (Reason: Heartburn) Discharge Orders: Discharge Order (Routine); Ordered 08/21/22 Ordered By: Jeff Wilcox Referrals: Jeff Wilcox MD [Primary Care Provider] - 08/25/22 9:00 am (Your follow up appointment for an incision check is on 08/25/2022 @ 9:00 a.m) Discharge Diet: Usual diet Discharge Activity: Limit activity as instructed Patient Instructions: Depression (DC), Bleeding (DC), Preeclampsia and Eclampsia After Delivery (GEN), OB - Jeri/Letty, OB Discharge Report, OB Food/Drug Interaction Guide, OB Care at Home, Opioid Safety, Abnormal Bleeding Discharge Attestations FOREST TECHNOLOGY PROFESSOR Time Spent in Discharge Care*: less than 30 min Coding Level of Care Code Acute Code for Chg Fwd Diagnoses 39 weeks gestation of Z3A.39 History of Z98.891 Sterilization consult Z30.09
--- NOTE | 2022-08-20 07:03 | P.PN_ITS ---
EXPERIMENTAL TECHNICIAN Subjective Subjective: Interval history: This note corresponds to August 20. The patient has been doing well overall. Her bleeding has been minimal. Her pain has increased since the Duramorph has worn off, but is responding well to medication. Labor: Monitor Mode: External Contraction Pattern: Irregular Status: Category I Vitals/I&O/Wt Last Vital Signs Temp 98.0 F 08/21/22 03:56 Pulse 74 08/21/22 03:51 Resp 16 08/21/22 03:56 BP 94/55 08/21/22 03:51 Pulse Ox 99 08/19/22 08:40 O2 Del Method 08/20/22 13:00 08/20/22 08/21/22 08/21/22 22:59 06:59 14:59 Intake Total 1500 / 1500 Balance 1500 / 1500 Physical Exam Narrative: She is in no acute distress Lungs are clear auscultation bilaterally Her heart has a regular rate and rhythm Her fundus is below the umbilicus and firm Her dressing is clean, dry and intact Her extremities have trace edema Urinary Catheter Management: Sharma: Cath Placed During This Visit: yes, but has since been removed by the nurse Reason for Continuing Indwelling Catheter: Perioperative Use in Selected Surgeries Urinary Catheter Date of Insertion: 08/19/22 Urinary Catheter Time of Insertion: 07:16 Date Urinary Catheter Removed: 08/19/22 Time Urinary Catheter Discontinued: 17:51 Data 08/19/22 21:45 A&P Assessment and plan (1) Status post : I anticipate routine post care. (2) Status post tubal ligation: Attestations Medical Necessity Statement*: Routine post care Coding Level of Care Code Acute Code for Chg Fwd Diagnoses Status post Z98.891 Status post tubal ligation Z98.51
[2022-08-20] MEDS: docusate sodium 100 mg Capsule PO ×2 (09:19→20:12)
[2022-08-20] MEDS: prenatal vitamin Capsule 1 CAP PO (09:19)
[2022-08-20] MEDS: ibuprofen 800 mg tablet PO (20:12)
[2022-08-20] MEDS: guaiFENesin-dextromethorphan UDC 10 mL 5 ML PO (20:12)
[2022-08-21] VITALS: TEMP 36.6; TEMP 36.7
[2022-08-21 03:51] VITALS: BP 94/55; PULSE 74
[2022-08-21] MEDS: HYDROcodone-acetaminophen 5-325 mg Tablet PO (03:51)
[2022-08-21] MEDS: guaiFENesin-dextromethorphan UDC 10 mL 5 ML PO ×2 (03:51→10:01)
[2022-08-21 03:56] VITALS: RESP 16; TEMP 36.6; TEMP 36.7
[2022-08-21 09:23] VITALS: BP 110/73; PULSE 103; RESP 15; TEMP 36.6
[2022-08-21] MEDS: ibuprofen 800 mg tablet PO (10:00)
[2022-08-21] MEDS: docusate sodium 100 mg Capsule PO (10:00)
[2022-08-21] MEDS: prenatal vitamin Capsule 1 CAP PO (10:01)
[2022-08-21 10:47] VITALS: BP 110/73; PULSE 103; RESP 15; TEMP 36.6
== END 2022-08-21 10:15 | disposition home or self-care (01) | DRG 785 ==
PROVIDERS: Admitting Provider Family Medicine; PCP Family Medicine; Visit Provider Family Medicine
PROC: 10D00Z1 Extraction of Products of Conception, Low, Open Approach (ICD-10-PCS; CPT 59514; principal; 2022-08-19 07:00)
DX: O34.219 Maternal care for unspecified type scar from previous cesarean delivery (principal); Z3A.39 39 weeks gestation of pregnancy; Z37.0 Single live birth; O99.344 Other mental disorders complicating childbirth; O69.82X0 Labor and delivery complicated by other cord entanglement, without compression, not applicable or unspecified; M32.9 Systemic lupus erythematosus, unspecified; F41.8 Other specified anxiety disorders; Z30.2 Encounter for sterilization; Z87.891 Personal history of nicotine dependence; O75.89 Other specified complications of labor and delivery
CPT/HCPCS: 12345; 36415; 51702; 59025; 59409; 85025; 85027; 88302; J0690; J1885; J2274; J2370; J2405; J2590; J2765; J3010; J3490; J7120

== ENCOUNTER 2022-09-23 12:54 | Emergency (ER) | payer MEDICAID, SELFPAY ==
[2022-09-23 12:57] VITALS: BP 124/88; PULSE 97; RESP 18; TEMP 36.7; O2SAT 98; BMI 30.9
--- NOTE | 2022-09-23 14:04 | CT_ITS ---
WS: [id number] CT ABDOMEN PELVIS TECHNIQUE: Contrast-enhanced CT of the abdomen and pelvis with coronal and sagittal reformatted image s. CLINICAL INFORMATION: ruq abd pain COMPARISON: None. DLP: 585.[address] scans at [facility] use at least one of these dose optimization techniques: automated e xposure control; mA and/or kV adjustment per patient size (includes targeted exams where dose is matc hed to clinical indication); or iterative reconstruction. FINDINGS: Diffuse fatty infiltration liver. Normal portal vein and splenic vein. Diffuse gallbladder wall thick ening with surrounding induration and enhancement suspicious for acute cholecystitis. Cholelithiasis. Dilated common bile duct measuring 10 mm. 4.5 mm obstructing calculus in the distal common bile duct . Additional suspected radiolucent calculi or debris in the more proximal common bile duct. Mild intr ahepatic biliary duct dilatation. Lung bases are well aerated. Normal spleen. Normal GE junction. Adrenal glands are normal. No hydrone phrosis in either kidney. Normal renal parenchymal enhancement. Cortical lobulation RIGHT kidney. Pancreas appears normal. Normal caliber abdominal aorta. Celiac and SMA are patent. Normal sigmoid co len. Prominent uterine vascularity compatible with recent status. Evidence of recent posto perative changes . Fat-containing umbilical hernia. CT/CT abdomen pelvis w con* [id number] IMPRESSION: 1. Findings suspicious for acute cholecystitis with distal common bile duct st one measuring 4.4 mm. Recommend further evaluation with ERCP 2. Dilated common bile duct measuring 10 mm. Intrahepatic biliary ductal dilat ation. Suspected additional debris or radiolucent calculi in the proximal commo n bile duct. 3. Diffuse fatty infiltration liver. Hepatomegaly. 4. Prominent uterine vascularity compatible with recent status. 5. Evidence of recent postoperative changes . Notified Oneil Matt DO at 09/23/2022 2:56 PM.
[2022-09-23 14:14] LABS: Basophils # 0.1 10^3/uL (0.0-0.1); Basophils % 0.4 %; Eosinophils % 0.2 %; Hemoglobin 13.9 g/dL (11.5-15.3); Lymphocytes # 1.2 10^3/uL (0.8-4.8); Lymphocytes % 9.4 %; Mean Corpuscular HGB Conc 31.6 g/dL (30.0-36.0); Mean Corpuscular Hemoglobin 27.3 pg (28.0-34.0); Mean Corpuscular Volume 86.3 fl (81-99); Mean Platelet Volume 10.5 fL (7.4-10.4); Monocytes # 0.8 10^3/uL (0.2-0.9); Monocytes % 5.8 %; Neutrophils # 10.94 10^3/uL (1.8-7.7); Neutrophils % 83.9 %; Nucleated Red Blood Cells % 0 %; Platelet Count 374 10^3/cmm (130-400); Red Cell Distribution Width 12.8 % (12.1-15.1)
[2022-09-23] MEDS: ondansetron 2 mg/ML SDV 2 mL 4 MG IVP (14:18)
[2022-09-23] MEDS: fentaNYL 50 mcg/mL INJ 2mL 100 MCG IVP (14:18)
[2022-09-23] MEDS: iohexol 350 mg/mL 500 mL Btl (per mL) IV (14:25)
[2022-09-23 14:31] VITALS: BP 95/69
[2022-09-23 14:35] LABS: Alanine Aminotransferase 69 U/L (0-33); Albumin Level 4.4 g/dL (3.5-5.2); Alkaline Phosphatase 183 U/L (35-105); Aspartate Amino Transferase 92 U/L (0-32); Blood Urea Nitrogen 9 mg/dL (6-20); Calcium 9.4 mg/dL (8.5-10.5); Carbon Dioxide 22 mmol/L (22-29); Chloride 103 mmol/L (98-107); Globulin 3.5 g/dL (1.3-4.6); Glucose 96 mg/dL (65-115); Lipase 30 U/L (13-60); Osmolality Calculated 287 mOsm/kg (285-295); Sodium 139 mmol/L (136-145); Total Bilirubin 1.6 mg/dL (0.15-1.2); Total Protein 7.9 g/dL (6.6-8.7)
--- NOTE | 2022-09-23 14:44 | ED_ITS ---
HPI - Abdominal Pain General: Chief Complaint: Abdominal Pain Stated Complaint: abd pain Time Seen by Provider: 09/23/22 14:01 History of Present Illness: Patient presents to the ER with complaints of right upper quadrant abdominal pain nausea vomiting. Patient states she has a gallbladder attack back when she was and they needed to take it after they could not do anything. Patient has since then delivered baby and is having another attack. This attack started 3 days ago and is worsened over the last couple days. MD elicited complaint: abdominal pain Pertinent past history: other (History of gallstones) Onset (ago): day(s) (3 days ago) Pain Consistency: constant and colicky Location: RUQ Severity: moderate Quality: cramping and aching Radiation: none Migration to: no migration Exacerbating factors: eating Relieving factors: nothing Associated Symptoms: Reports nausea and vomiting Review of Systems General: Reports: 10 or more systems reviewed and unremarkable except in HPI and below GI: Reports: nausea and vomiting PFSH ED PFSH: Medical History First trimester Lupus (systemic lupus erythematosus) No pertinent past medical history neg hx:htn,dm,thyroid,dvt/pe 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 Positive ENRIKE (antinuclear antibody) SS-A antibody positive Surgical History H/O section 08/27/2010--breech presentation 09/03/2014-- planned repeat Status post Status post tubal ligation Family History Father Diabetes Hypertension Stroke Mother Family history of thyroid problem Other CAD (coronary artery disease) Cancer Family history of premature coronary artery disease Hyperlipidemia Rheumatoid arthritis Denies family history of Colon cancer Ovarian cancer Lupus Heart disease Hypercholesteremia Chronic kidney disease (CKD) Breast cancer Lung disease Uterine cancer Social History Smoking and tobacco status: former smoker Alcohol intake: never Substance/Drug Use: never Physical Exam Const: COMMON NORMALS: average body habitus, patient oriented x3, no limitat ions, healthy appearing, alert and well nourished HENMT: COMMON NORMALS: normocephalic, atraumatic, hearing grossly normal bilaterally, external ears normal, Normal external nose present and moist oral mucous membranes HEAD & SCALP: normocephalic and atraumatic NOSE: Normal external nose present EXTERNAL EAR: Yes external ears normal Eye: COMMON NORMALS: Equal, round and reactive pupils present, EOMs intact bilaterally, conjunctivae normal and no scleral icterus CONJUNCTIVA: Yes conjunctivae normal PUPIL: Yes Equal, round and reactive pupils present Neck/C-Spine: COMMON NORMALS: full ROM, no lymphadenopathy, supple, no meningeal signs, no JVD and Thyroid normal THYROID: Thyroid normal Lymph: LYMPHATIC: no lymphadenopathy noted Chest: COMMONS NORMALS: normal inspection of the chest and normal palpation of entire chest wall Resp: COMMON NORMALS: normal respiratory effort, No retractions, No use of accessory muscles and clear to auscultation bilaterally AUSCULTATION: clear to auscultation bilaterally Cardio: COMMON NORMALS: no JVD, regular rate, S1 normal heart sound present, S2 normal heart sound present, No gallops present (Cardio), No clicks present (Cardio) and No murmurs present (Cardio) RATE: regular rate HEART SOUNDS: S1 normal heart sound present and S2 normal heart sound present GI: OTHER: Pain with palpation of right upper quadrant with guarding. No rebound or rigidity. Bowel sounds positive in all 4 quadrants. Neuro: COMMON NORMALS: patient oriented x3 SENSORIUM/ORIENTATION: Yes alert MENINGEAL SIGNS: Yes no meningeal signs Course Vital Signs: Vital signs: Vital Signs Temperature 98.0 F 09/23/22 12:57 Pulse Rate 97 09/23/22 12:57 Respiratory Rate 18 09/23/22 12:57 Blood Pressure 95/69 09/23/22 14:31 Pulse Oximetry 98 09/23/22 12:57 Oxygen Delivery Me thod Room Air 09/23/22 12:57 MDM - Abdominal Pain Medical Decision Making Patient presents today with right acute right upper quadrant pain. Patient does have a history of known gallstones. Lab work and imaging was obtained which showed patient is a white count of 13,000 her liver enzymes are slightly elevated with total bilirubin approximately 1.4 and AST and ALT proximately [address] did show findings suspicious for acute cholecystitis with distal common bile duct stone. Patient was informed of these findings and told she needed an ERCP as well as a cholecystectomy. Patient be transferred [facility] where these can be performed. Patient is aware this and is okay with transfer. Dr. Davies will accept the patient but prefers her to go through the ER. Differential Diagnosis Likely abdominal pain; Unlikely acute appendicitis, calculus of kidney, constipation, diverticulitis, endometriosis, gastroenteritis, pancreatitis or small bowel obstruction Medical Records I reviewed the patient's medical records. Lab Data I reviewed the patient's lab results. 09/23/22 13:55 09/23/22 13:55 Labs/Radiology: Radiology Impressions Abdomen/Pelvis CT 09/23/22 14:04 IMPRESSION: 1. Findings suspicious for acute cholecystitis with distal common bile duct stone measuring 4.4 mm. Recommend further evaluation with ERCP 2. Dilated common bile duct measuring 10 mm. Intrahepatic biliary ductal dilatation. Suspected additional debris or radiolucent calculi in the proximal common bile duct. 3. Diffuse fatty infiltration liver. Hepatomegaly. 4. Prominent uterine vascularity compatible with recent status. 5. Evidence of recent postoperative changes . Notified Oneil Matt DO at 09/23/2022 2:56 PM. Laboratory Results WBC 13.0 10^3/uL (4.0-10.0) H 09/23/22 13:55 RBC 5.10 10^6/uL (4.1-5.3) 09/23/22 13:55 Hgb 13.9 g/dL (11.5-15.3) 09/23/22 13:55 Hct 44.0 % (37.0-47.0) 09/23/22 13:55 MCV 86.3 fl (81-99) 09/23/22 13:55 MCH 27.3 pg (28.0-34.0) L 09/23/22 13:55 MCHC 31.6 g/dL (30.0-36.0) 09/23/22 13:55 RDW 12.8 % (12.1-15.1) 09/23/22 13:55 Plt Count 374 10^3/cmm (130-400) 09/23/22 13:55 MPV 10.5 fL (7.4-10.4) H 09/23/22 13:55 Neut % (Auto) 83.9 % 09/23/22 13:55 Lymph % (Auto) 9.4 % 09/23/22 13:55 [place] % (Auto) 5.8 % 09/23/22 13:55 Eos % (Auto) 0.2 % 09/23/22 13:55 Baso % (Auto) 0.4 % 09/23/22 13:55 Neut # (Auto) 10.94 10^3/uL (1.8-7.7) H 09/23/22 13:55 Lymph # (Auto) 1.2 10^3/uL (0.8-4.8) 09/23/22 13:55 [place] # (Auto) 0.8 10^3/uL (0.2-0.9) 09/23/22 13:55 Eos # (Auto) 0.0 10^3/uL (0.0-0.8) 09/23/22 13:55 Baso # (Auto) 0.1 10^3/uL (0.0-0.1) 09/23/22 13:55 Nucleated RBC % (auto) 0 % 09/23/22 13:55 Nucleated RBCs # 0.0 /100WBC 09/23/22 13:55 Sodium 139 mmol/L (136-145) 09/23/22 13:55 Potassium 4.0 mmol/L (3.5-5.1) 09/23/22 13:55 Chloride 103 mmol/L (98-107) 09/23/22 13:55 Carbon Dioxide 22 mmol/L (22-29) 09/23/22 13:55 Anion Gap 18.0 (5-19) 09/23/22 13:55 BUN 9 mg/dL (6-20) 09/23/22 13:55 Creatinine 0.8 mg/dL (0.5-0.9) 09/23/22 13:55 GFR Calculation 86.0 mL/min (90-130) L 09/23/22 13:55 Glucose 96 mg/dL (65-115) 09/23/22 13:55 Calculated Osmolality 287 mOsm/kg (285-295) 09/23/22 13:55 Calcium 9.4 mg/dL (8.5-10.5) 09/23/22 13:55 Total Bilirubin 1.6 mg/dL (0.15-1.2) H 09/23/22 13:55 AST 92 U/L (0-32) H 09/23/22 13:55 ALT 69 U/L (0-33) H 09/23/22 13:55 Alkaline Phosphatase 183 U/L (35-105) H 09/23/22 13:55 Total Protein 7.9 g/dL (6.6-8.7) 09/23/22 13:55 Albumin 4.4 g/dL (3.5-5.2) 09/23/22 13:55 Globulin 3.5 g/dL (1.3-4.6) 09/23/22 13:55 Lipase 30 U/L (13-60) 09/23/22 13:55 Discharge Plan Discharge Patient Disposition: Xfer Short-Term Hosp Clinical Impression: Choledocholithiasis with acute cholecystitis with obstruction Condition: Stable Prescriptions: No Action hydrocodone-acetaminophen 5-325 mg Tablet 1 tab PO Q6H PRN (Reason: Moderate To Severe Pain) Qty: 28 0RF ibuprofen 800 mg tablet 800 mg PO TID PRN (Reason: Pain) Referrals: Jeff Wilcox MD [Primary Care Provider] - Coding Level of Care Code ED Mba Intern for Michael Alvarado
[2022-09-23 16:18] VITALS: BP 118/71; O2SAT 100
== END 2022-09-23 17:56 | disposition short-term general hospital (02) ==
PROVIDERS: Emergency Provider Emergency Medicine; PCP Family Medicine
DX: K80.43 Calculus of bile duct with acute cholecystitis with obstruction (principal); Z87.891 Personal history of nicotine dependence; M32.9 Systemic lupus erythematosus, unspecified
CPT/HCPCS: 74177; 80053; 83690; 85025; 96374; 96375; 99285; J2405; J3010; Q9967